=== PATIENT | female | born 1955 | race Caucasian/White ===

== ENCOUNTER 2016-10-12 10:03 | Emergency (ER) | payer OTHER ==
[~2016-10-12] VITALS: Ht 167.6 cm; Wt 70.0 kg
[2016-10-12 11:02] LABS: BLOOD UREA NITROGEN 23 mg/dL (7-18)
[2016-10-12 12:06] VITALS: BP 128/80
== END 2016-10-12 12:08 | disposition home or self-care (01) ==
LOC: ED 10:51
DX: J20.8 Acute bronchitis due to other specified organisms (principal)
CPT/HCPCS: 36415; 71020; 80048; 82040; 85025; 93005; 99285